=== PATIENT | female | born 1925 | race Caucasian/White ===

== ENCOUNTER 2016-11-29 16:25 | Emergency (ER) | payer OTHER ==
--- NOTE | 2016-11-29 18:39 | ED NURSING NOTES ---
Clinical Report - Nurses [facility] [address] [place] [address] 11/29/2016 16:30 Patient: JAILENE ESQUEDA TRIAGE Triage time 16:28. Acuity: LEVEL 4. Chief Complaint: (Per EMS: pt. 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 has not been keeping anything down. No report of emesis seen. Pt denies N/V or pain at this time. Pt. states, "I feel just fine and need to get home soon."). Alert. No acute distress. SEPSIS SCREEN: Sepsis Screen. Negative (no infection suspected/documented). JODI COMA SCORE: Jodi Coma Scale. (pt. has dementia). --16:48 Kendra Patricio R.N. 16:37 11/29/16. BP: 150/55. HR: 74. RR: 15. O2 saturation: 100%. Temp: 98.7 F. Pain level now 0/10. --16:48 Kendra Patricio R.N. Weight: 70.3 kg estimated. Height/Length: 62 inches Estimated. BMI: 28.4. --16:39 Kendra Patricio R.N. Medications Aspirin Oral (Tablet Chewable 81 mg) 1 tablet. --16:42 Kendra Patricio R.N. Atorvastatin Calcium Oral 20 mg, daily. --16:43 Kendra Patricio R.N. CertaVite Senior/Antioxidant Oral daily. --16:43 Kendra Patricio R.N. Docusate Sodium Oral (Capsule 250 mg) 1 capsule, daily. --16:43 Kendra Patricio R.N. Donepezil HCl Oral (Tablet 10 mg) 1 tablet, daily. --16:43 Kendra Patricio R.N. Multiple Vitamins Oral. --16:43 Kendra Patricio R.N. Sertraline HCl Oral (Tablet 50 mg) 1 tablet, daily. --16:44 Kendra Patricio R.N. Tolterodine Tartrate ER Oral daily. --16:44 Kendra Patricio R.N. Vitamin d3 1,000 units daily. --16:44 Kendra Patricio R.N. Acetaminophen Oral, as needed. --16:44 Kendra Patricio R.N. Antacids. --16:45 Kendra Patricio R.N. Bisac-Evac Rectal, as needed. --16:45 Kendra Patricio R.N. Bisacodyl EC Oral, as needed. --16:45 Kendra Patricio R.N. Enema prn. --16:46 Kendra Ptaricio R.N. Loperamide HCl Oral 2 mg x2 PRN. --16:46 Kendra Patricio R.N. LORazepam Oral 0.5 mg, as needed. --16:46 Kendra Patricio R.N. Allergies No Known Drug Allergy. --16:46 Kendra Patricio R.N. History Arrived by EMS. Historian: patient (pt has dementia). Primary physician (Froilan Mccarthy). This started today. Treatment POWDERMAN: None. PAST MEDICAL HX: Immunizations: up-to-date. SOCIAL HX: Never smoker. No alcohol use or drug use. She has not traveled outside the [place] ABUSE ASSESSMENT: No report of abuse. NUTRITIONAL RISK ASSESSMENT: The nutritional risk assessment revealed no deficiencies. LEARNING NEEDS ASSESSMENT: The learning needs assessment revealed no barriers. FUNCTIONAL ASSESSMENT: Functional assessment performed: requires assistance with the activities of daily living; cognitive impairment- senile dementia. --16:48 Kendra Patricio R.N. PROBLEMS: Chronic kidney disease stage 3. Acute nephritis NOS. General osteoarthrosis. Benign hypertension. Gastric ulcer. Dementia. Alzheimer's Disease. --16:48 Kendra Patricio R.N. ADDITIONAL SURGERIES: Unknown none noted in records: pt. has dementia. --16:48 Kendra Patricio R.N. Interventions ID band on patient. Transported via stretcher. --16:48 Kendra Patricio R.N. PHYSICAL ASSESSMENT GENERAL / NEURO / PSYCH: Alert. Appears in no acute distress. ( pt. is alert but confused: pt has dementia.). HEENT: No facial asymmetry noted. Mucous membranes are pink. RESPIRATORY: Respirations not labored. CVS: Capillary refill less than 2 seconds. Pulses within normal limits. GI / : Abdomen soft and nontender. SKIN: Skin intact. Skin is warm and dry. --16:49 Kendra Patricio R.N. ( assessment done at 1628). --16:50 Kendra Patricio R.N. NURSING PROGRESS NOTES Head of bed elevated. Two patient identifiers checked. Call light placed in reach. Side rails up x 2. Bed placed in lowest position. Brakes of bed on. Patient ready for evaluation- chart flagged. --16:49 Kendra Patricio R.N. 18:09 11/29/2016 Zofran ODT (Ondansetron) PO 4 mg given. Allergies verified and confirmed 5 rights. --18:09 Kendra Patricio R.N. DISPOSITION / DISCHARGE Condition at departure: stable. No learning barriers present. Discharge instructions provided and reviewed with the patient and family. Reviewed referral to family practice. Patient verbalized understanding. Written instructions provided in [place]. The patient was discharged home and accompanied by family. She left the Emergency Department in a wheelchair and via private vehicle. Family member driving. Medication list reviewed and validated. --18:17 Kendra Patricio R.N. 18:16 11/29/16. BP: 140/85. HR: 70. RR: 15. O2 saturation: 100%. Temp: 98.6 F. Pain level now 0/10. --18:17 Kendra Patricio R.N. Departure time: 18:17. --18:17 Kendra Patricio R.N. Locked/Released at 11/29/2016 19:14 by Mary Guthrie R.N.
--- NOTE | 2016-11-29 18:39 | ED CLINICAL REPORT ---
Clinical Report - Physicians/Mid Levels [facility] [address] [place] [address] 11/29/2016 16:30 Patient: JAILENE ESQUEDA Time Seen: 17:21; initial patient contact, initial documentation, patient care assumed. Arrived- By ambulance. Historian- patient and family. HISTORY OF PRESENT ILLNESS Chief Complaint: VOMITING. This started today and is now gone. No recent travel. She has had mild nausea. She has had vomiting (unknown). No diarrhea, black stools, bloody stools, abdominal pain or constipation. No flank pain, history of possible bad food exposure or known contact with a sick individual. Has not recently been camping or on antibiotics. The illness is described as mild. (sent [facility] for vomiting today, unknown how many episodes, pt denies any vomiting today, states sometimes she eats too much, will wake up in middle of night and vomit and go back to bed, family backs this story up, from [facility] staff). Similar symptoms previously: Occasionally. Recent medical care: Not recently seen/assessed. REVIEW OF SYSTEMS No fever, difficulty with urination, dark urine, chest pain or difficulty breathing. All systems otherwise negative, except as recorded above. PAST HISTORY See nurses notes. PROBLEMS: Chronic kidney disease stage 3. Acute nephritis NOS. General osteoarthrosis. Benign hypertension. Gastric ulcer. Dementia. Alzheimer's Disease. --16:48 Kendra Patricio R.N. ADDITIONAL SURGERIES: Unknown none noted in records: pt. has dementia. --16:48 Kendra Patricio RDalila. SOCIAL HISTORY Never smoker. No alcohol use or drug use. No recent travel. Is a local resident. Resides in a [facility]. FAMILY HISTORY Negative. ADDITIONAL NOTES The nursing notes have been reviewed with agreement regarding the chief complaint, HPI, ROS, PMH and patient medications and allergies. PHYSICAL EXAM Vital Signs: 11/29/2016 16:37 BP: 150/55. HR: 74. RR: 15. O2 saturation: 100%. Temp: 98.7 F. Have been reviewed as normal and appear to be correct. Appearance: Alert. Oriented X3. No acute distress. Eyes: Pupils equal, round and reactive to light. Eyes normal inspection. ENT: Nose normal. Pharynx normal. Neck: Normal inspection. Neck supple. CVS: Normal heart rate and rhythm. Heart sounds normal. Pulses normal. Respiratory: No respiratory distress. Breath sounds normal. Abdomen: Soft and nontender. Bowel sounds normal. No organomegaly. No mass. Back: Normal inspection. Skin: Skin warm and dry. Normal skin color. No rash. Normal skin turgor. Extremities: Extremities exhibit normal ROM. No lower extremity edema. Neuro: Disoriented. Altered mental status: disoriented to place and time. Eyes open spontaneously. Best verbal response: disoriented. Best motor response: obeys commands. No motor deficit. No sensory deficit. PROGRESS AND PROCEDURES Patient and family counseled in person regarding the patient's stable condition and diagnosis. 17:52. Differential Diagnosis: I considered gastritis, peptic ulcer disease, gastroesophageal reflux disease, achalasia, gastroparesis, gastroenteritis and viral syndrome as a possible cause of vomiting in this patient. This is a partial list of diagnoses considered. Above considerations are based on history and physical exam. Differential diagnosis was discussed with patient and patient's family. Disposition: Discharged home in good and improved condition (17:52). Condition: good and stable. CLINICAL IMPRESSION Intractable vomiting. No nausea, dehydration or volume depletion. Not bilious. INSTRUCTIONS Warnings: GENERAL WARNINGS: Return or contact your physician immediately if your condition worsens or changes unexpectedly, if not improving as expected, or if other problems arise. SPECIFICALLY, return if you develop pain in the abdomen or pelvis, fever, the inability to keep fluids down, blood in vomitus, blood in diarrhea, fainting or lightheadedness. Prescription Medications: Zofran 4 mg: Take 1 orally every six hours as needed for nausea/vomiting. Dispense ten (10). No refills. Substitution is permissible. Pepcid 20 mg tablets: Take 1 orally every 12 hours. Dispense thirty (30). No refills. Substitution is permissible. Follow-up: Follow up with your doctor in about three days even if well. Call for an appointment. Summary of care provided to patient and family. Understanding of the discharge instructions verbalized by patient. (Electronically signed by Jessica Claros A.R.NRosemariePRosemarie 11/29/2016 19:20)
--- NOTE | 2016-11-29 18:39 | ED NURSING NOTES ---
Clinical Report - Nurses [facility] [address] [place] [address] 11/29/2016 16:30 Patient: JAILENE ESQUEDA TRIAGE Triage time 16:28. Acuity: LEVEL 4. 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 stated pt. has not been keeping anything down. No report of emesis seen. Pt denies N/V or pain at this time. Pt. states, "I feel just fine and need to get home soon."). Alert. No acute distress. SEPSIS SCREEN: Sepsis Screen. Negative (no infection suspected/documented). JODI COMA SCORE: Jodi Coma Scale. (pt. has dementia). --16:48 Kendra Patricio R.N. 16:37 11/29/16. BP: 150/55. HR: 74. RR: 15. O2 saturation: 100%. Temp: 98.7 F. Pain level now 0/10. --16:48 Kendra Patricio R.N. Weight: 70.3 kg estimated. Height/Length: 62 inches Estimated. BMI: 28.4. --16:39 Kendra Patricio R.N. Medications Aspirin Oral (Tablet Chewable 81 mg) 1 tablet. --16:42 Kendra Patricio R.N. Atorvastatin Calcium Oral 20 mg, daily. --16:43 Kendra Patricio R.N. CertaVite Senior/Antioxidant Oral daily. --16:43 Kendra Patricio R.N. Docusate Sodium Oral (Capsule 250 mg) 1 capsule, daily. --16:43 Kendra Patricio R.N. Donepezil HCl Oral (Tablet 10 mg) 1 tablet, daily. --16:43 Kendra Patricio R.N. Multiple Vitamins Oral. --16:43 Kendra Patricio R.N. Sertraline HCl Oral (Tablet 50 mg) 1 tablet, daily. --16:44 Kendra Patricio R.N. Tolterodine Tartrate ER Oral daily. --16:44 Kendra Patricio R.N. Vitamin d3 1,000 units daily. --16:44 Kendra Patricio R.N. Acetaminophen Oral, as needed. --16:44 Kendra Patricio R.N. Antacids. --16:45 Kendra Patricio R.N. Bisac-Evac Rectal, as needed. --16:45 Kendra Patricio R.N. Bisacodyl EC Oral, as needed. --16:45 Kendra Patricio R.N. Enema prn. --16:46 Kendra Patricio R.N. Loperamide HCl Oral 2 mg x2 PRN. --16:46 Kendra Patricio R.N. LORazepam Oral 0.5 mg, as needed. --16:46 Kendra Patricio R.N. Allergies No Known Drug Allergy. --16:46 Kendra Patricio R.N. History Arrived by EMS. Historian: patient (pt has dementia). Primary physician (Froilan Mccarthy). This started today. Treatment GRIT REMOVAL OPERATOR: None. PAST MEDICAL HX: Immunizations: up-to-date. SOCIAL HX: Never smoker. No alcohol use or drug use. She has not traveled outside the [place] ABUSE ASSESSMENT: No report of abuse. NUTRITIONAL RISK ASSESSMENT: The nutritional risk assessment revealed no deficiencies. LEARNING NEEDS ASSESSMENT: The learning needs assessment revealed no barriers. FUNCTIONAL ASSESSMENT: Functional assessment performed: requires assistance with the activities of daily living; cognitive impairment- senile dementia. --16:48 Kendra Patricio R.N. PROBLEMS: Chronic kidney disease stage 3. Acute nephritis NOS. General osteoarthrosis. Benign hypertension. Gastric ulcer. Dementia. Alzheimer's Disease. --16:48 Kendra Patricio R.N. ADDITIONAL SURGERIES: Unknown none noted in records: pt. has dementia. --16:48 Kendra Patricio R.N. Interventions ID band on patient. Transported via stretcher. --16:48 Kendra Patricio R.N. PHYSICAL ASSESSMENT GENERAL / NEURO / PSYCH: Alert. Appears in no acute distress. ( pt. is alert but confused: pt has dementia.). HEENT: No facial asymmetry noted. Mucous membranes are pink. RESPIRATORY: Respirations not labored. CVS: Capillary refill less than 2 seconds. Pulses within normal limits. GI / : Abdomen soft and nontender. SKIN: Skin intact. Skin is warm and dry. --16:49 Kendra Patricio R.N. ( assessment done at 1628). --16:50 Kendra Patricio R.N. NURSING PROGRESS NOTES Head of bed elevated. Two patient identifiers checked. Call light placed in reach. Side rails up x 2. Bed placed in lowest position. Brakes of bed on. Patient ready for evaluation- chart flagged. --16:49 Kendra Patricio R.N. 18:09 11/29/2016 Zofran ODT (Ondansetron) PO 4 mg given. Allergies verified and confirmed 5 rights. --18:09 Kendra Patricio R.N. DISPOSITION / DISCHARGE Condition at departure: stable. No learning barriers present. Discharge instructions provided and reviewed with the patient and family. Reviewed referral to family practice. Patient verbalized understanding. Written instructions provided in [place]. The patient was discharged home and accompanied by family. She left the Emergency Department in a wheelchair and via private vehicle. Family member driving. Medication list reviewed and validated. --18:17 Kendra Patricio R.N. 18:16 11/29/16. BP: 140/85. HR: 70. RR: 15. O2 saturation: 100%. Temp: 98.6 F. Pain level now 0/10. --18:17 Kendra Patricio R.N. Departure time: 18:17. --18:17 Kendra Patricio R.N. Locked/Released at 11/29/2016 19:14 by Mary Guthrie R.N.
--- NOTE | 2016-11-29 18:39 | ED CLINICAL REPORT ---
Clinical Report - Physicians/Mid Levels [facility] [address] [place] [address] 11/29/2016 16:30 Patient: JAILENE ESQUEDA Time Seen: 17:21; initial patient contact, initial documentation, patient care assumed. Arrived- By ambulance. Historian- patient and family. HISTORY OF PRESENT ILLNESS Chief Complaint: VOMITING. This started today and is now gone. No recent travel. She has had mild nausea. She has had vomiting (unknown). No diarrhea, black stools, bloody stools, abdominal pain or constipation. No flank pain, history of possible bad food exposure or known contact with a sick individual. Has not recently been camping or on antibiotics. The illness is described as mild. (sent from assisted place for vomiting today, unknown how many episodes, pt denies any vomiting today, states sometimes she eats too much, will wake up in middle of night and vomit and go back to bed, family backs this story up, from assisted staff). Similar symptoms previously: Occasionally. Recent medical care: Not recently seen/assessed. REVIEW OF SYSTEMS No fever, difficulty with urination, dark urine, chest pain or difficulty breathing. All systems otherwise negative, except as recorded above. PAST HISTORY See nurses notes. PROBLEMS: Chronic kidney disease stage 3. Acute nephritis NOS. General osteoarthrosis. Benign hypertension. Gastric ulcer. Dementia. Alzheimer's Disease. --16:48 Kendra Patricio R.N. ADDITIONAL SURGERIES: Unknown none noted in records: pt. has dementia. --16:48 Kendra Patricio RDalila. SOCIAL HISTORY Never smoker. No alcohol use or drug use. No recent travel. Is a local resident. Resides in a assisted. FAMILY HISTORY Negative. ADDITIONAL NOTES The nursing notes have been reviewed with agreement regarding the chief complaint, HPI, ROS, PMH and patient medications and allergies. PHYSICAL EXAM Vital Signs: 11/29/2016 16:37 BP: 150/55. HR: 74. RR: 15. O2 saturation: 100%. Temp: 98.7 F. Have been reviewed as normal and appear to be correct. Appearance: Alert. Oriented X3. No acute distress. Eyes: Pupils equal, round and reactive to light. Eyes normal inspection. ENT: Nose normal. Pharynx normal. Neck: Normal inspection. Neck supple. CVS: Normal heart rate and rhythm. Heart sounds normal. Pulses normal. Respiratory: No respiratory distress. Breath sounds normal. Abdomen: Soft and nontender. Bowel sounds normal. No organomegaly. No mass. Back: Normal inspection. Skin: Skin warm and dry. Normal skin color. No rash. Normal skin turgor. Extremities: Extremities exhibit normal ROM. No lower extremity edema. Neuro: Disoriented. Altered mental status: disoriented to place and time. Eyes open spontaneously. Best verbal response: disoriented. Best motor response: obeys commands. No motor deficit. No sensory deficit. PROGRESS AND PROCEDURES Patient and family counseled in person regarding the patient's stable condition and diagnosis. 17:52. Differential Diagnosis: I considered gastritis, peptic ulcer disease, gastroesophageal reflux disease, achalasia, gastroparesis, gastroenteritis and viral syndrome as a possible cause of vomiting in this patient. This is a partial list of diagnoses considered. Above considerations are based on history and physical exam. Differential diagnosis was discussed with patient and patient's family. Disposition: Discharged home in good and improved condition (17:52). Condition: good and stable. CLINICAL IMPRESSION Intractable vomiting. No nausea, dehydration or volume depletion. Not bilious. INSTRUCTIONS Warnings: GENERAL WARNINGS: Return or contact your physician immediately if your condition worsens or changes unexpectedly, if not improving as expected, or if other problems arise. SPECIFICALLY, return if you develop pain in the abdomen or pelvis, fever, the inability to keep fluids down, blood in vomitus, blood in diarrhea, fainting or lightheadedness. Prescription Medications: Zofran 4 mg: Take 1 orally every six hours as needed for nausea/vomiting. Dispense ten (10). No refills. Substitution is permissible. Pepcid 20 mg tablets: Take 1 orally every 12 hours. Dispense thirty (30). No refills. Substitution is permissible. Follow-up: Follow up with your doctor in about three days even if well. Call for an appointment. Summary of care provided to patient and family. Understanding of the discharge instructions verbalized by patient. (Electronically signed by Jessica Claros A.R.NRosemariePRosemarie 11/29/2016 19:20)
--- NOTE | 2016-11-29 18:39 | ED ORDER SUMMARY ---
..... Patient: JAILENE ESQUEDA OrderSheet [facility] VisitID: [id number] [address] [place] [address] 89y, F Registration Date/Time: 11/29/2016 ORDER SHEET Weight: 70.3 kg (estimated) Allergies: No Known Drug Allergy GENERAL ORDERS: MEDICATION ORDERS: Zofran ODT PO 4 mg (NOW) (17:50 11/29/2016 Kaitlyn A.R.N.P.) (Ack 18:03 SReitz R.N.) (18:09 SReitz R.N.) IV FLUIDS: ORDER SHEET NOTES: [Electronically signed by Mary Guthrie R.N. (19:14 11/29/2016)] [Electronically signed by Jessica ClarosR.N.P. (19:20 11/29/2016)] [Electronically locked/signed by aMry Guthrie R.N. (19:14 11/29/2016)]
--- NOTE | 2016-11-29 18:39 | ED ORDER SUMMARY ---
..... Patient: JAILENE ESQUEDA OrderSheet [facility] VisitID: [id number] [address] [place] [address] 89y, F Registration Date/Time: 11/29/2016 ORDER SHEET Weight: 70.3 kg (estimated) Allergies: No Known Drug Allergy GENERAL ORDERS: MEDICATION ORDERS: Zofran ODT PO 4 mg (NOW) (17:50 11/29/2016 Kaitlyn A.R.N.P.) (Ack 18:03 SReitz R.N.) (18:09 SReitz R.N.) IV FLUIDS: ORDER SHEET NOTES: [Electronically signed by Mary Guthrie R.N. (19:14 11/29/2016)] [Electronically signed by Jessica ClarosR.N.P. (19:20 11/29/2016)] [Electronically locked/signed by Mary Guthrie R.N. (19:14 11/29/2016)]
--- NOTE | 2016-11-29 19:21 | ED DISCHARGE INSTRUCTIONS ---
Patient: JAILENE ESQUEDA General Instructions [facility] VisitID: [id number] [place] [address] 89y, F Registration Date/Time: 11/29/2016 Intractable vomiting. No nausea, dehydration or volume depletion. Not bilious. INSTRUCTIONS Warnings: GENERAL WARNINGS: Return or contact your physician immediately if your condition worsens or changes unexpectedly, if not improving as expected, or if other problems arise. SPECIFICALLY, return if you develop pain in the abdomen or pelvis, fever, the inability to keep fluids down, blood in vomitus, blood in diarrhea, fainting or lightheadedness. Prescription Medications: Zofran 4 mg: Take 1 orally every six hours as needed for nausea/vomiting. Dispense ten (10). No refills. Substitution is permissible. Pepcid 20 mg tablets: Take 1 orally every 12 hours. Dispense thirty (30). No refills. Substitution is permissible. Follow-up: Follow up with your doctor in about three days even if well. Call for an appointment. Summary of care provided to patient and family. Understanding of the discharge instructions verbalized by patient. ADDITIONAL INFORMATION Vomiting [6Yr-Adult] Vomiting is a common symptom that may be due to different causes. These include gastroenteritis ("stomach flu"), food poisoning and gastritis. There are other more serious causes of vomiting which may be hard to diagnose early in the illness. Therefore, it is important to watch for the warning signs listed below. The main danger from repeated vomiting is dehydration. This is due to excess loss of water and minerals from the body. When this occurs, body fluids must be replaced. Home Care: If symptoms are severe, rest at home for the next 24 hours. You may use acetaminophen (Tylenol) or ibuprofen (Motrin, Advil) to control fever, unless another medicine was prescribed. [NOTE : If you have chronic liver or kidney disease or ever had a stomach ulcer or GI bleeding, talk with your doctor before using these medicines.] (Aspirin should never be used in anyone under 18 years of age who is ill with a fever. It may cause severe liver damage.) Avoid tobacco and alcohol use, which may worsen your symptoms. If medicines for vomiting were prescribed, take as directed. Once vomiting stops, then follow these guidelines: During The First 12-24 Hours follow the diet below: FRUIT JUICES: Apple, grape juice, clear fruit drinks, and electrolyte replacement drinks. BEVERAGES: Soft drinks without caffeine; mineral water (plain or flavored), decaffeinated tea and coffee. SOUPS: Clear broth, consomm and bouillon DESSERTS: Plain gelatin, popsicles and fruit juice bars. As you feel better, you may add 6-8 ounces of yogurt per day. During The Next 24 Hours you may add the following to the above: Hot cereal, plain toast, bread, rolls, crackers Plain noodles, rice, mashed potatoes, chicken noodle or rice soup Unsweetened canned fruit (avoid pineapple), bananas Limit caffeine and chocolate. No spices or seasonings except salt. During The Next 24 Hours Gradually resume a normal diet, as you feel better and your symptoms lessen. Follow Up with your doctor as advised if you are not improving over the next 2-3 days. Get Prompt Medical Attention if any of the following occur: Constant right-sided lower abdominal pain or increasing general abdominal pain Continued vomiting (unable to keep liquids down) for 24 hours Frequent diarrhea (more than 5 times a day); blood (red or black color) or mucus in diarrhea Reduced urine output or extreme thirst Weakness, dizziness or fainting Unusually drowsy or confused Fever of 100.4F (38C) oral or higher, not better with fever medication Yellow color of the eyes or skin Ondansetron Oral disintegrating tablet What is this medicine? ONDANSETRON (on ARA se jet) is used to treat nausea and vomiting caused by chemotherapy. It is also used to prevent or treat nausea and vomiting after surgery. How should I use this medicine? These tablets are made to dissolve in the mouth. Do not try to push the tablet through the foil backing. With dry hands, peel away the foil backing and gently remove the tablet. Place the tablet in the mouth and allow it to dissolve, then swallow. While you may take these tablets with water, it is not necessary to do so. Talk to your snow ranger regarding the use of this medicine in children. Special care may be needed. What side effects may I notice from receiving this medicine? Side effects that you should report to your doctor or health childcare provider as soon as possible: allergic reactions like skin rash, itching or hives, swelling of the face, lips, or tongue breathing problems dizziness fast or irregular heartbeat feeling faint or lightheaded, falls fever and chills swelling of the hands and feet tightness in the chest Side effects that usually do not require medical attention (report to your doctor or health childcare provider if they continue or are bothersome): constipation or diarrhea headache What may interact with this medicine? Do not take this medicine with any of the following medications: -apomorphine -cisapride -dofetilide -dronedarone -pimozide -thioridazine -ziprasidone This medicine may also interact with the following medications: -carbamazepine -phenytoin -rifampicin -tramadol -other medicines that prolong the QT interval (cause an abnormal heart rhythm) What if I miss a dose? If you miss a dose, take it as soon as you can. If it is almost time for your next dose, take only that dose. Do not take double or extra doses. Where should I keep my medicine? Keep out of the reach of children. Store between 2 and 30 degrees C (36 and 86 degrees F). Throw away any unused medicine after the expiration date. What should I tell my health care provider before I take this medicine? They need to know if you have any of these conditions: heart disease history of irregular heartbeat liver disease low levels of magnesium or potassium in the blood an unusual or allergic reaction to ondansetron, granisetron, other medicines, foods, dyes, or preservatives or trying to get breast-feeding What should I watch for while using this medicine? Check with your doctor or health childcare provider as soon as you can if you have any sign of an allergic reaction. Famotidine Oral tablet What is this medicine? FAMOTIDINE (fa NAYAN ti jacek) is a type of antihistamine that blocks the release of stomach acid. It is used to treat stomach or intestinal ulcers. It can also relieve heartburn from acid reflux. How should I use this medicine? Take this medicine by mouth with a glass of water. Follow the directions on the prescription label. If you only take this medicine once a day, take it at bedtime. Take your doses at regular intervals. Do not take your medicine more often than directed. Talk to your snow ranger regarding the use of this medicine in children. Special care may be needed. What side effects may I notice from receiving this medicine? Side effects that you should report to your doctor or health childcare provider as soon as possible: agitation, nervousness confusion hallucinations skin rash, itching Side effects that usually do not require medical attention (report to your doctor or health childcare provider if they continue or are bothersome): constipation diarrhea dizziness headache What may interact with this medicine? delavirdine itraconazole ketoconazole What if I miss a dose? If you miss a dose, take it as soon as you can. If it is almost time for your next dose, take only that dose. Do not take double or extra doses. Where should I keep my medicine? Keep out of the reach of children. Store at room temperature between 15 and 30 degrees C (59 and 86 degrees F). Do not freeze. Throw away any unused medicine after the expiration date. What should I tell my health care provider before I take this medicine? They need to know if you have any of these conditions: kidney or liver disease trouble swallowing an unusual or allergic reaction to famotidine, other medicines, foods, dyes, or preservatives or trying to get breast-feeding What should I watch for while using this medicine? Tell your doctor or health childcare provider if your condition does not start to get better or if it gets worse. Finish the full course of tablets prescribed, even if you feel better. Do not take with aspirin, ibuprofen or other antiinflammatory medicines. These can make your condition worse. Do not smoke cigarettes or drink alcohol. These cause irritation in your stomach and can increase the time it will take for ulcers to heal. If you get black, tarry stools or vomit up what looks like coffee grounds, call your doctor or health childcare provider at once. You may have a bleeding ulcer. You have been given the following additional information: Vomiting (6Y-Adult) Ondansetron Oral disintegrating tablet Famotidine Oral tablet (Electronically signed by Jessica Claros A.R.N.P. 11/29/2016 19:20)
--- NOTE | 2016-11-29 19:21 | ED MAR SUMMARY ---
..... Medication Administration Record [facility] [address] [place] [address] Patient: JAILENE ESQUEDA Visit ID: [id number] 89y, F Weight: 70.3 kg Height/Length: 62 in BMI: 28.4 ALLERGIES: No Known Drug Allergy Given 18:09 11/29/2016 Kendra Patricio R.N. Medication Administered: ZOFRAN ODT [PO] (ONDANSETRON), Dose: 4 mg PO. Medication Ordered: Zofran ODT PO 4 mg (NOW).
--- NOTE | 2016-11-29 19:21 | ED MED RECONCILIATION SUMMARY ---
Patient: JAILENE ESQUEDA Medication Reconciliation Report [facility] VisitID: [id number] [address] [place] [address] 89y, F Registration Date/Time: 11/29/2016 Weight: 70.3 kg Height/Length: 62 in. BMI: 28.4 ALLERGIES: No Known Drug Allergy The patient's Home Medications are listed below: THE FOLLOWING MEDICATIONS NEED TO BE RECONCILED: Acetaminophen Oral Antacids Aspirin Oral (81 mg) 1 tablet Atorvastatin Calcium Oral 20 mg, daily Bisac-Evac Rectal Bisacodyl EC Oral CertaVite Senior/Antioxidant Oral daily Docusate Sodium Oral (250 mg) 1 capsule, daily Donepezil HCl Oral (10 mg) 1 tablet, daily Enema prn Loperamide HCl Oral 2 mg x2 PRN LORazepam Oral 0.5 mg Multiple Vitamins Oral Sertraline HCl Oral (50 mg) 1 tablet, daily Tolterodine Tartrate ER Oral daily Vitamin d3 1,000 units daily The source(s) of the original Home Medication information: Not obtained. The following Medications were given to the patient in the Emergency Department: Zofran ODT [PO] PO 4 mg, administered: 11/29/2016 6:09:00 PM The following Medications were prescribed to the patient: Zofran 4 mg: Take 1 orally every six hours as needed for nausea/vomiting. Dispense ten (10). No refills. Substitution is permissible. -- Jessica Claros A.R.N.P. Pepcid 20 mg tablets: Take 1 orally every 12 hours. Dispense thirty (30). No refills. Substitution is permissible. -- Jessica Claros A.R.N.P.
--- NOTE | 2016-11-29 19:21 | ED MED RECONCILIATION SUMMARY ---
Patient: JAILENE ESQUEDA Medication Reconciliation Report [facility] VisitID: [id number] [address] [place] [address] 89y, F Registration Date/Time: 11/29/2016 Weight: 70.3 kg Height/Length: 62 in. BMI: 28.4 ALLERGIES: No Known Drug Allergy The patient's Home Medications are listed below: THE FOLLOWING MEDICATIONS NEED TO BE RECONCILED: Acetaminophen Oral Antacids Aspirin Oral (81 mg) 1 tablet Atorvastatin Calcium Oral 20 mg, daily Bisac-Evac Rectal Bisacodyl EC Oral CertaVite Senior/Antioxidant Oral daily Docusate Sodium Oral (250 mg) 1 capsule, daily Donepezil HCl Oral (10 mg) 1 tablet, daily Enema prn Loperamide HCl Oral 2 mg x2 PRN LORazepam Oral 0.5 mg Multiple Vitamins Oral Sertraline HCl Oral (50 mg) 1 tablet, daily Tolterodine Tartrate ER Oral daily Vitamin d3 1,000 units daily The source(s) of the original Home Medication information: Not obtained. The following Medications were given to the patient in the Emergency Department: Zofran ODT [PO] PO 4 mg, administered: 11/29/2016 6:09:00 PM The following Medications were prescribed to the patient: Zofran 4 mg: Take 1 orally every six hours as needed for nausea/vomiting. Dispense ten (10). No refills. Substitution is permissible. -- Jessica Claros A.R.N.P. Pepcid 20 mg tablets: Take 1 orally every 12 hours. Dispense thirty (30). No refills. Substitution is permissible. -- Jessica Claros A.R.N.P.
--- NOTE | 2016-11-29 19:21 | ED MAR SUMMARY ---
..... Medication Administration Record [facility] [address] [place] [address] Patient: JAILENE ESQUEDA Visit ID: [id number] 89y, F Weight: 70.3 kg Height/Length: 62 in BMI: 28.4 ALLERGIES: No Known Drug Allergy Given 18:09 11/29/2016 Kendra Patricio R.N. Medication Administered: ZOFRAN ODT [PO] (ONDANSETRON), Dose: 4 mg PO. Medication Ordered: Zofran ODT PO 4 mg (NOW).
--- NOTE | 2016-11-29 19:21 | ED DISCHARGE INSTRUCTIONS ---
Patient: JAILENE ESQUEDA General Instructions [facility] VisitID: [id number] [place] [address] 89y, F Registration Date/Time: 11/29/2016 Intractable vomiting. No nausea, dehydration or volume depletion. Not bilious. INSTRUCTIONS Warnings: GENERAL WARNINGS: Return or contact your physician immediately if your condition worsens or changes unexpectedly, if not improving as expected, or if other problems arise. SPECIFICALLY, return if you develop pain in the abdomen or pelvis, fever, the inability to keep fluids down, blood in vomitus, blood in diarrhea, fainting or lightheadedness. Prescription Medications: Zofran 4 mg: Take 1 orally every six hours as needed for nausea/vomiting. Dispense ten (10). No refills. Substitution is permissible. Pepcid 20 mg tablets: Take 1 orally every 12 hours. Dispense thirty (30). No refills. Substitution is permissible. Follow-up: Follow up with your doctor in about three days even if well. Call for an appointment. Summary of care provided to patient and family. Understanding of the discharge instructions verbalized by patient. ADDITIONAL INFORMATION Vomiting [6Yr-Adult] Vomiting is a common symptom that may be due to different causes. These include gastroenteritis ("stomach flu"), food poisoning and gastritis. There are other more serious causes of vomiting which may be hard to diagnose early in the illness. Therefore, it is important to watch for the warning signs listed below. The main danger from repeated vomiting is dehydration. This is due to excess loss of water and minerals from the body. When this occurs, body fluids must be replaced. Home Care: If symptoms are severe, rest at home for the next 24 hours. You may use acetaminophen (Tylenol) or ibuprofen (Motrin, Advil) to control fever, unless another medicine was prescribed. [NOTE : If you have chronic liver or kidney disease or ever had a stomach ulcer or GI bleeding, talk with your doctor before using these medicines.] (Aspirin should never be used in anyone under 18 years of age who is ill with a fever. It may cause severe liver damage.) Avoid tobacco and alcohol use, which may worsen your symptoms. If medicines for vomiting were prescribed, take as directed. Once vomiting stops, then follow these guidelines: During The First 12-24 Hours follow the diet below: FRUIT JUICES: Apple, grape juice, clear fruit drinks, and electrolyte replacement drinks. BEVERAGES: Soft drinks without caffeine; mineral water (plain or flavored), decaffeinated tea and coffee. SOUPS: Clear broth, consomm and bouillon DESSERTS: Plain gelatin, popsicles and fruit juice bars. As you feel better, you may add 6-8 ounces of yogurt per day. During The Next 24 Hours you may add the following to the above: Hot cereal, plain toast, bread, rolls, crackers Plain noodles, rice, mashed potatoes, chicken noodle or rice soup Unsweetened canned fruit (avoid pineapple), bananas Limit caffeine and chocolate. No spices or seasonings except salt. During The Next 24 Hours Gradually resume a normal diet, as you feel better and your symptoms lessen. Follow Up with your doctor as advised if you are not improving over the next 2-3 days. Get Prompt Medical Attention if any of the following occur: Constant right-sided lower abdominal pain or increasing general abdominal pain Continued vomiting (unable to keep liquids down) for 24 hours Frequent diarrhea (more than 5 times a day); blood (red or black color) or mucus in diarrhea Reduced urine output or extreme thirst Weakness, dizziness or fainting Unusually drowsy or confused Fever of 100.4F (38C) oral or higher, not better with fever medication Yellow color of the eyes or skin Ondansetron Oral disintegrating tablet What is this medicine? ONDANSETRON (on ARA se jet) is used to treat nausea and vomiting caused by chemotherapy. It is also used to prevent or treat nausea and vomiting after surgery. How should I use this medicine? These tablets are made to dissolve in the mouth. Do not try to push the tablet through the foil backing. With dry hands, peel away the foil backing and gently remove the tablet. Place the tablet in the mouth and allow it to dissolve, then swallow. While you may take these tablets with water, it is not necessary to do so. Talk to your pmp regarding the use of this medicine in children. Special care may be needed. What side effects may I notice from receiving this medicine? Side effects that you should report to your doctor or health healthcare analyst as soon as possible: allergic reactions like skin rash, itching or hives, swelling of the face, lips, or tongue breathing problems dizziness fast or irregular heartbeat feeling faint or lightheaded, falls fever and chills swelling of the hands and feet tightness in the chest Side effects that usually do not require medical attention (report to your doctor or health healthcare analyst if they continue or are bothersome): constipation or diarrhea headache What may interact with this medicine? Do not take this medicine with any of the following medications: -apomorphine -cisapride -dofetilide -dronedarone -pimozide -thioridazine -ziprasidone This medicine may also interact with the following medications: -carbamazepine -phenytoin -rifampicin -tramadol -other medicines that prolong the QT interval (cause an abnormal heart rhythm) What if I miss a dose? If you miss a dose, take it as soon as you can. If it is almost time for your next dose, take only that dose. Do not take double or extra doses. Where should I keep my medicine? Keep out of the reach of children. Store between 2 and 30 degrees C (36 and 86 degrees F). Throw away any unused medicine after the expiration date. What should I tell my health care provider before I take this medicine? They need to know if you have any of these conditions: heart disease history of irregular heartbeat liver disease low levels of magnesium or potassium in the blood an unusual or allergic reaction to ondansetron, granisetron, other medicines, foods, dyes, or preservatives or trying to get breast-feeding What should I watch for while using this medicine? Check with your doctor or health healthcare analyst as soon as you can if you have any sign of an allergic reaction. Famotidine Oral tablet What is this medicine? FAMOTIDINE (fa NAYAN ti jacek) is a type of antihistamine that blocks the release of stomach acid. It is used to treat stomach or intestinal ulcers. It can also relieve heartburn from acid reflux. How should I use this medicine? Take this medicine by mouth with a glass of water. Follow the directions on the prescription label. If you only take this medicine once a day, take it at bedtime. Take your doses at regular intervals. Do not take your medicine more often than directed. Talk to your pmp regarding the use of this medicine in children. Special care may be needed. What side effects may I notice from receiving this medicine? Side effects that you should report to your doctor or health healthcare analyst as soon as possible: agitation, nervousness confusion hallucinations skin rash, itching Side effects that usually do not require medical attention (report to your doctor or health healthcare analyst if they continue or are bothersome): constipation diarrhea dizziness headache What may interact with this medicine? delavirdine itraconazole ketoconazole What if I miss a dose? If you miss a dose, take it as soon as you can. If it is almost time for your next dose, take only that dose. Do not take double or extra doses. Where should I keep my medicine? Keep out of the reach of children. Store at room temperature between 15 and 30 degrees C (59 and 86 degrees F). Do not freeze. Throw away any unused medicine after the expiration date. What should I tell my health care provider before I take this medicine? They need to know if you have any of these conditions: kidney or liver disease trouble swallowing an unusual or allergic reaction to famotidine, other medicines, foods, dyes, or preservatives or trying to get breast-feeding What should I watch for while using this medicine? Tell your doctor or health healthcare analyst if your condition does not start to get better or if it gets worse. Finish the full course of tablets prescribed, even if you feel better. Do not take with aspirin, ibuprofen or other antiinflammatory medicines. These can make your condition worse. Do not smoke cigarettes or drink alcohol. These cause irritation in your stomach and can increase the time it will take for ulcers to heal. If you get black, tarry stools or vomit up what looks like coffee grounds, call your doctor or health healthcare analyst at once. You may have a bleeding ulcer. You have been given the following additional information: Vomiting (6Y-Adult) Ondansetron Oral disintegrating tablet Famotidine Oral tablet (Electronically signed by Jessica Claros A.R.N.P. 11/29/2016 19:20)
== END 2016-11-29 18:17 | disposition home or self-care (01) ==
LOC: ED SRH 16:25
DX: R11.11 Vomiting without nausea (principal); N18.3 Chronic kidney disease, stage 3 (moderate); I10 Essential (primary) hypertension; G30.9 Alzheimer's disease, unspecified; F02.80 Dementia in other diseases classified elsewhere, unspecified severity, without behavioral disturbance, psychotic disturbance, mood disturbance, and anxiety; Z79.82 Long term (current) use of aspirin; Z79.899 Other long term (current) drug therapy

== ENCOUNTER 2017-03-05 14:01 | Emergency (ER) | payer OTHER ==
--- NOTE | 2017-03-05 15:53 | DIAGNOSTIC IMAGING REPORT ---
PROCEDURE: XR HIP 2VW W W/O AP PELVIS-RT INDICATION: PAIN TECHNIQUE: AP view of the pelvis and hips with lateral view of the right hip. COMPARISON: None. FINDINGS: RIGHT HIP: Decreased mineralization. No fracture. Normal bony alignment. Mild superior joint space loss and slight acetabular sclerosis indicating mild degenerative change at the hip joint. There is cartilage calcification seen laterally along the femoral head and a vague labral calcification. There is heavy calcific atherosclerosis of the right lower extremity arteries. PELVIS: Decreased mineralization. Pelvic rings are intact. No fractures. Normal alignment. Minor degenerative change at the left hip joint including chondrocalcinosis of the femoral head. Dense lobular calcifications seen in the left pelvis likely a degenerating uterine fibroid. Severe degenerative sclerosis involving the lower lumbar vertebral bodies. The visible bowel gas pattern is normal. IMPRESSION: 1. Intact right hip. 2. 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 3. Osteopenia. 4. 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
--- NOTE | 2017-03-05 17:18 | ED CLINICAL REPORT ---
Clinical Report - Physicians/Mid Levels [facility] [address] [place] [address] 03/05/2017 14:03 [id number] Time Seen: 14:22 Mar 05 2017. Arrived- By ambulance. Historian- patient and EMS personnel. HISTORY OF PRESENT ILLNESS Chief Complaint: right leg pain. 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 No weight loss. (New onset of diff ambulating over last 2 weeks, worse over last few days, no known injury / fall. NO change in behavior. Family, daughter has arrived, reports patient with dementia, primarily in a sitting position, does transfer from wheelchair to bed and chair, by standing. Patient does not ambulate. Denies any known fall. Patient is normal to her.). REVIEW OF SYSTEMS No fever, cough, abdominal pain, diarrhea or black stools. No chills or blackouts. No difficulty with ambulation. All systems otherwise negative, except as recorded above. PAST HISTORY Problems: Vomiting. Chronic kidney disease stage 3. Acute nephritis NOS. General osteoarthrosis. Benign hypertension. Gastric ulcer. Dementia. Alzheimer's Disease. Additional Surgeries: Unknown none noted in records: pt. has dementia. Medications: Ranitidine HCl Oral (Syrup 15 mg/mL) 10 mL, 2x a day. Aspirin Oral (Tablet Chewable 81 mg) 1 tablet. Atorvastatin Calcium Oral 20 mg, daily. Docusate Sodium Oral (Capsule 250 mg) 1 capsule, daily. Donepezil HCl Oral (Tablet 10 mg) 1 tablet, daily. Multiple Vitamins Oral. Sertraline HCl Oral (Tablet 50 mg) 1 tablet, daily. Vitamin d3 1,000 units daily. Allergies: No Known Drug Allergy. SOCIAL HISTORY Never smoker. No alcohol use or drug use. ADDITIONAL NOTES The nursing notes have been reviewed. PHYSICAL EXAM Vital Signs: 03/05/2017 14:04 BP: 166/77. HR: 70. RR: 16. O2 saturation: 99%. Temp: 97.4 F. Pain level now: 4/10. Appearance: Alert. No acute distress. No apparent distress. Does not appear to be anxious. Eyes: Eyes normal inspection. Neck: Normal inspection. CVS: Normal heart rate and rhythm. Heart sounds normal. Rhythm normal. No extra heart sounds. Respiratory: No respiratory distress. Breath sounds normal. No accessory muscle use or decreased air movement. Abdomen: No visible injury. No abdominal tenderness. The bowel sounds are not abnormal. Back: Mild vertebral tenderness in the right and left lumbar area. Skin: Skin warm. Normal skin color. Extremities: Extremities exhibit normal ROM. No clubbing present. No calf tenderness. No lower extremity edema. Neuro: Moderately altered mental status: disoriented to person, place and time. Patient slow to respond. No motor deficit. LABS, X-RAYS, AND EKG Rt Hip X-ray: (IMPRESSION: 1. Intact right hip. 2. 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 3. Osteopenia. 4. 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 Electronically Final signed by:Faith Villafana MD 03/05/2017 3:53:25 PM). Laboratory Tests: UA-Culture if indicated: (JENNIFER: 03/05/2017 15:10) ( MsgRcvd 03/05/2017 15:56) Final results Test Result Flag Units (Reference) URINE COLOR YELLOW URINE APPEARANCE CLEAR URINE GLUCOSE NEGATIVE (NEGATIVE) URINE BILIRUBIN NEGATIVE (NEGATIVE) URINE KETONE NEGATIVE (NEGATIVE) URINE SPECIFIC GRAVITY 1.025 (1.010-1.030) URINE PH 6.0 (5.0-8.0) URINE PROTEIN TRACE (NEGATIVE) URINE UROBILINOGEN 0.2 EU/dL (0.2-1.0) URINE NITRITE NEGATIVE (NEGATIVE) URINE BLOOD TRACE-INTACT (NEGATIVE) URINE LEUK ESTERASE NEGATIVE (NEGATIVE) URINE RBC 3-5 rbc/hpf (0-1) URINE WBC 0-1 wbc/hpf (0-1) URINE EPITHELIAL CELLS 0-1 EPI/hpf (0-5) URINE BACTERIA NONE SEEN (NONE SEEN) URINE COMMENT CULT NOT INDICATED 2+ MUCUS5-10 Hyaline Casts/l.p.f.URINE CULTURES ARE SET-UP BASED ON THE FOLLOWING CRITERIA:POSITIVE NITRITEPOSITIVE LEUKOCYTE ESTERASEGREATER THAN 10 WHITE BLOOD CELLSMODERATE (2+) OR GREATER BACTERIA CBC w Diff: (JENNIFER: 03/05/2017 15:16) ( MsgRcvd 03/05/2017 15:30) Final results Test Result Flag Units (Reference) WHITE BLOOD COUNT 7.5 K/uL (4.5-11.5) RED BLOOD COUNT 3.87 L M/uL (4.00-5.20) HEMOGLOBIN 11.6 L gm/dL (12.0-16.0) HEMATOCRIT 35.0 L % (36.0-46.0) MEAN CELL VOLUME 90 fL (80-100) MEAN CORPUSCULAR HGB 30 pg (26-34) MEAN CORPUSCULAR HGB CONC 33 g/dL (31-37) RED CELL DISTRIBUTION WIDTH 14.7 % (11.6-14.8) PLATELET COUNT 288 K/uL (150-400) NEUTROPHIL % 70.1 % (50-75) LYMPH % 15.8 L % (25-40) MONO % 10.4 % (3-14) EOSINOPHIL % 3.2 % (0-4) BASOPHIL % 0.5 % (0-2) [id number]: (JENNIFER: 03/05/2017 15:16) ( MsgRcvd 03/05/2017 15:41) Final results Test Result Flag Units (Reference) D-DIMER QUANTITATIVE 1.77 H ug/mLFEU (0.27-0.52) The primary value of this quantitative assay relates toits negative predictive value (i.e. exclusion) of pulmonaryembolism/deep vein thrombosis/DIC.Elevated levels of d-dimer may also occur with:, age, cancer, inflammation, liver disease,post-op, infection, hematoma, coronary disease, peripheralarteriopathy, bleeding disorders and thrombolytic treatment.Results should be correlated with other clinical andradiological data.Testing Methodology: Latex Immunoassay BMP: (JENNIFER: 03/05/2017 15:16) ( MsgRcvd 03/05/2017 15:44) Final results Test Result Flag Units (Reference) GLUCOSE 134 H mg/dL (70-110) BUN 18 mg/dL (7-18) CREATININE 1.4 H mg/dL (0.6-1.3) Estimated GFR 37.63 mL/min Estimated GFR- 45.61 mL/min Note: Persistent reduction over 3 months in eGFR<60 mL/min/1.73 m2 defines CKD. Patients with eGFR values>=60 mL/min/1.73 m2 may also have CKD if evidence ofpersistent proteinuria. Additional information may be foundat www.kidney.org. SODIUM 142 mmol/L (136-145) POTASSIUM 3.9 mmol/L (3.5-5.1) CHLORIDE 106 mmol/L (98-107) CARBON DIOXIDE 29 mmol/L (21-32) CALCIUM 9.2 mg/dL (8.5-10.1) . Note - Tests: (US neg for dvt IMPRESSION: 1. No deep venous thrombosis in the right lower extremity. Electronically Final signed by:Faith Villafana MD 03/05/2017 6:02:20 PM). PROGRESS AND PROCEDURES Course of Care: Patient in her normal state of being per family. No distress. No signs of trauma. No signs of head injury. Patient very stable. Patient is able to stand. Discussed options of increase care with family, they will follow up with primary care provider. 03/05/2017 17:42 BP: 136/74. HR: 74. RR: 16. O2 saturation: 100%. Pain level now: 0/10. Patient is stable. Symptoms better. Patient/family counseled. Differential Diagnosis: I considered ischemic stroke, arteriovenous malformation, cord compression, subdural abscess and other etiology as a possible cause of weakness in this patient. This is a partial list of diagnoses considered. Disposition: Discharged. CLINICAL IMPRESSION Chronic polyarthritis. Chronic nontraumatic back pain. INSTRUCTIONS Warnings: Further evaluation is necessary. OTC Medications: Tylenol ER 650 mg (available over the counter): take 1 orally every 6 hours for 5 days, as needed for pain. Dispense fifteen (15). No refill. Substitution is permissible. (Electronically signed by Yoli Stewart P.A.-C 03/05/2017 18:18)
--- NOTE | 2017-03-05 17:18 | ED ORDER SUMMARY ---
..... Patient: JAILENE ESQUEDA Order[facility] VisitID: [id number] [address] [place] [address] 89y, F Registration Date/Time: 03/05/2017 ORDER SHEET Weight: 81.6 kg (estimated) Allergies: No Known Drug Allergy GENERAL ORDERS: Hip 2V Right w AP Pelvis Urgent (14:21 03/05/2017 EKoroleva P.A.-C) (Ack 14:25 TBergley) (14:40 Hayder) CBC w Diff Urgent (14:42 03/05/2017 EKoroleva P.A.-C) (Ack 14:45 TBergley) (15:59 KKnebel R.N.) BMP Urgent (14:42 03/05/2017 EKoroleva P.A.-C) (Ack 14:45 TBergley) (15:59 KKnebel R.N.) UA-Culture if indicated Urgent (14:42 03/05/2017 EKoroleva P.A.-C) (Ack 14:45 TBergley) (15:59 KKnebel R.N.) D-Dimer Urgent (14:42 03/05/2017 EKoroleva P.A.-C) (Ack 14:45 TBergley) (15:59 KKnebel R.N.) US Venous Right Urgent (15:46 03/05/2017 EKoroleva P.A.-C) (Ack 16:03 TBergley) (17:31 KKnebel R.N.) MEDICATION ORDERS: IV FLUIDS: ORDER SHEET NOTES: [Electronically signed by Ene Domniguez R.N. (18:01 03/05/2017)] [Electronically signed by Yoli StewartA.-C (18:18 03/05/2017)] [Electronically locked/signed by Ene Dominguez R.N. (18:01 03/05/2017)]
--- NOTE | 2017-03-05 17:18 | ED NURSING NOTES ---
Clinical Report - Nurses [facility] [address] [place] [address] 03/05/2017 14:03 [id number] Triage time 14:Mar 05 2017. Acuity: LEVEL 3. Chief Complaint: RIGHT LOWER EXTREMITY PAIN. JODI COMA SCORE: Jodi Coma Scale: 15- eyes open spontaneously (4); best verbal response- oriented x 4 (5); best motor response- obeys commands (6). --14:13 Ene Dominguez R.N. 14:04 03/05/17. BP: 166/77. HR: 70. RR: 16. O2 saturation: 99%. Temp: 97.4 F. Pain level now: 03/06. --14:13 Ene Dominguez R.N. Weight: 81.6 kg estimated. Height/Length: 65 inches Estimated. BMI: 30. --14:10 Ene Dominguez R.N. Medications Aspirin Oral (Tablet Chewable 81 mg) 1 tablet. Atorvastatin Calcium Oral 20 mg, daily. Docusate Sodium Oral (Capsule 250 mg) 1 capsule, daily. Donepezil HCl Oral (Tablet 10 mg) 1 tablet, daily. Multiple Vitamins Oral. Sertraline HCl Oral (Tablet 50 mg) 1 tablet, daily. Vitamin d3 1,000 units daily. --14:11 Ene Dominguez R.N. Ranitidine HCl Oral (Syrup 15 mg/mL) 10 mL, 2x a day. --14:12 Ene Dominguez R.N. Medication/allergy information source: the patient's longterm record. --14:13 Ene Dominguez R.N. Allergies No Known Drug Allergy. --14:12 Ene Dominguez R.N. History Arrived by EMS. Historian: patient. No injury occurred. This occurred (about 2 weeks). It is described as radiating to the right lower extremity and thigh. 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 PAST MEDICAL HX: Tetanus status: unknown. Immunizations: status is unknown. Denies current . SOCIAL HX: Never smoker. No alcohol use or drug use. No infectious disease exposure. SELF HARM ASSESSMENT: A self harm assessment was performed. The patient answered "no" to the question "Do you have thoughts of harming or killing yourself?". ABUSE ASSESSMENT: Abuse assessment: The patient was asked "Do you feel safe in your home?". FALL RISK ASSESSMENT: Fall risk assessment completed. Risk factors identified include patient age greater than 65 years, history of fall and impairment of cognition. Fall interventions initiated. Side rails up x2. Brakes on Bed in low position. Patient visible from nurses' station. Instructed not to get up without assistance. --14:13 Ene Dominguez R.N. PROBLEMS: Vomiting. Chronic kidney disease stage 3. Acute nephritis NOS. General osteoarthrosis. Benign hypertension. Gastric ulcer. Dementia. Alzheimer's Disease. --14:12 Ene Dominguez R.N. Interventions ID band on patient. To room. --14:13 Ene Dominguez R.N. PHYSICAL ASSESSMENT To room via stretcher. GENERAL / NEURO / PSYCH: Disoriented. Alert. Appears in no acute distress. EXTREMITIES: Extremity pulses are within normal limits. Neuro-vascular status intact to the extremity. No lower extremity edema. Right leg: tenderness. Limited weight bearing secondary to pain. SKIN: Skin is warm and dry. --14:14 Ene Dominguez R.N. NURSING PROGRESS NOTES Pulse oximeter and NIBP monitor placed on patient; monitor alarms on. Patient gowned. Two patient identifiers checked. Call light placed in reach. Side rails up x 2. Bed placed in lowest position. Brakes of bed on. Patient ready for evaluation- chart flagged. --14:14 Ene Dominguez R.N. Patient ready for evaluation- chart flagged. --14:14 Ene Dominguez R.N. Patient transported to radiology by stretcher with [employer]. (14:26 Mar 05 2017). --14:36 Ene Dominguez R.N. 14:26 03/05/17. ( family at bedside). --14:37 Ene Dominguez R.N. Patient returned from radiology by stretcher with tech. (14:40 Mar 05 2017). --14:40 Ene Dominguez R.N. The patient reports no complaints and she is calm and resting quietly. --14:50 Ene Dominguez R.N. 14:49 03/05/17. BP: 123/57. HR: 65. RR: 16. O2 saturation: 100%. Pain level now: 0/10. --14:50 Ene Dominguez R.N. DISPOSITION / DISCHARGE Departure time: 17:43 Mar 05 2017. Condition at departure: improved. Fall risk assessment completed. Risk factors identified include severe pain and patient age greater than 65 years, history of fall and impairment of mobility and cognition. No learning barriers present. Discharge instructions provided and reviewed with the patient and family. Reviewed medication(s) side effects, precautions, dosing and course information. Reviewed referral to a primary care physician. Patient and family verbalized understanding. Written instructions provided in Rwandan. The patient was discharged home and accompanied by family. She left the Emergency Department in a wheelchair and via private vehicle. Family member driving. --17:44 Ene Dominguez R.N. 17:42 03/05/17. BP: 136/74. HR: 74. RR: 16. O2 saturation: 100%. Pain level now: 0/10. --17:44 Ene Dominguez R.N. Locked/Released at 03/05/2017 18:01 by Ene Dominguez R.N.
--- NOTE | 2017-03-05 17:18 | ED NURSING NOTES ---
Clinical Report - Nurses [place] [address] [place] [address] 03/05/2017 14:03 [id number] Triage time 14:Mar 05 2017. Acuity: LEVEL 3. Chief Complaint: RIGHT LOWER EXTREMITY PAIN. JODI COMA SCORE: Jodi Coma Scale: 15- eyes open spontaneously (4); best verbal response- oriented x 4 (5); best motor response- obeys commands (6). --14:13 Ene Dominguez R.N. 14:04 03/05/17. BP: 166/77. HR: 70. RR: 16. O2 saturation: 99%. Temp: 97.4 F. Pain level now: 03/06. --14:13 Ene Dominguez R.N. Weight: 81.6 kg estimated. Height/Length: 65 inches Estimated. BMI: 30. --14:10 Ene Dominguez R.N. Medications Aspirin Oral (Tablet Chewable 81 mg) 1 tablet. Atorvastatin Calcium Oral 20 mg, daily. Docusate Sodium Oral (Capsule 250 mg) 1 capsule, daily. Donepezil HCl Oral (Tablet 10 mg) 1 tablet, daily. Multiple Vitamins Oral. Sertraline HCl Oral (Tablet 50 mg) 1 tablet, daily. Vitamin d3 1,000 units daily. --14:11 Ene Dominguez R.N. Ranitidine HCl Oral (Syrup 15 mg/mL) 10 mL, 2x a day. --14:12 Ene Dominguez R.N. Medication/allergy information source: the patient's [facility] record. --14:13 Ene Dominguez R.N. Allergies No Known Drug Allergy. --14:12 Ene Dominguez R.N. History Arrived by EMS. Historian: patient. No injury occurred. This occurred (about 2 weeks). It is described as radiating to the right lower extremity and thigh. Treatment CLIENT APPLICATION SUPPORT SPECIALIST: None. PAST MEDICAL HX: Tetanus status: unknown. Immunizations: status is unknown. Denies current . SOCIAL HX: Never smoker. No alcohol use or drug use. No infectious disease exposure. SELF HARM ASSESSMENT: A self harm assessment was performed. The patient answered "no" to the question "Do you have thoughts of harming or killing yourself?". ABUSE ASSESSMENT: Abuse assessment: The patient was asked "Do you feel safe in your home?". FALL RISK ASSESSMENT: Fall risk assessment completed. Risk factors identified include patient age greater than 65 years, history of fall and impairment of cognition. Fall interventions initiated. Side rails up x2. Brakes on Bed in low position. Patient visible from nurses' station. Instructed not to get up without assistance. --14:13 Ene Dominguez R.N. PROBLEMS: Vomiting. Chronic kidney disease stage 3. Acute nephritis NOS. General osteoarthrosis. Benign hypertension. Gastric ulcer. Dementia. Alzheimer's Disease. --14:12 Ene Dominguez R.N. Interventions ID band on patient. To room. --14:13 Ene Dominguez R.N. PHYSICAL ASSESSMENT To room via stretcher. GENERAL / NEURO / PSYCH: Disoriented. Alert. Appears in no acute distress. EXTREMITIES: Extremity pulses are within normal limits. Neuro-vascular status intact to the extremity. No lower extremity edema. Right leg: tenderness. Limited weight bearing secondary to pain. SKIN: Skin is warm and dry. --14:14 Ene Dominguez R.N. NURSING PROGRESS NOTES Pulse oximeter and NIBP monitor placed on patient; monitor alarms on. Patient gowned. Two patient identifiers checked. Call light placed in reach. Side rails up x 2. Bed placed in lowest position. Brakes of bed on. Patient ready for evaluation- chart flagged. --14:14 Ene Dominguez R.N. Patient ready for evaluation- chart flagged. --14:14 Ene Dominguez R.N. Patient transported to radiology by stretcher with [employer]. (14:26 Mar 05 2017). --14:36 Ene Dominguez R.N. 14:26 03/05/17. ( family at bedside). --14:37 Ene Dominguez R.N. Patient returned from radiology by stretcher with tech. (14:40 Mar 05 2017). --14:40 Ene Dominguez R.N. The patient reports no complaints and she is calm and resting quietly. --14:50 Ene Dominguez R.N. 14:49 03/05/17. BP: 123/57. HR: 65. RR: 16. O2 saturation: 100%. Pain level now: 0/10. --14:50 Ene Dominguez R.N. DISPOSITION / DISCHARGE Departure time: 17:43 Mar 05 2017. Condition at departure: improved. Fall risk assessment completed. Risk factors identified include severe pain and patient age greater than 65 years, history of fall and impairment of mobility and cognition. No learning barriers present. Discharge instructions provided and reviewed with the patient and family. Reviewed medication(s) side effects, precautions, dosing and course information. Reviewed referral to a primary care physician. Patient and family verbalized understanding. Written instructions provided in Martiniquais. The patient was discharged home and accompanied by family. She left the Emergency Department in a wheelchair and via private vehicle. Family member driving. --17:44 Ene Dominguez R.N. 17:42 03/05/17. BP: 136/74. HR: 74. RR: 16. O2 saturation: 100%. Pain level now: 0/10. --17:44 Ene Dominguez R.N. Locked/Released at 03/05/2017 18:01 by Ene Dominguez R.N.
--- NOTE | 2017-03-05 17:18 | ED ORDER SUMMARY ---
..... Patient: JAILENE ESQUEDA OrderSheet [facility] VisitID: [id number] [address] [place] [address] 89y, F Registration Date/Time: 03/05/2017 ORDER SHEET Weight: 81.6 kg (estimated) Allergies: No Known Drug Allergy GENERAL ORDERS: Hip 2V Right w AP Pelvis Urgent (14:21 03/05/2017 EKoroleva P.A.-C) (Ack 14:25 TBergley) (14:40 Hayder) CBC w Diff Urgent (14:42 03/05/2017 EKoroleva P.A.-C) (Ack 14:45 TBergley) (15:59 KKnebel R.N.) BMP Urgent (14:42 03/05/2017 EKoroleva P.A.-C) (Ack 14:45 TBergley) (15:59 KKnebel R.N.) UA-Culture if indicated Urgent (14:42 03/05/2017 EKoroleva P.A.-C) (Ack 14:45 TBergley) (15:59 KKnebel R.N.) D-Dimer Urgent (14:42 03/05/2017 EKoroleva P.A.-C) (Ack 14:45 TBergley) (15:59 KKnebel R.N.) US Venous Right Urgent (15:46 03/05/2017 EKoroleva P.A.-C) (Ack 16:03 TBergley) (17:31 KKnebel R.N.) MEDICATION ORDERS: IV FLUIDS: ORDER SHEET NOTES: [Electronically signed by Ene Dominguez R.N. (18:01 03/05/2017)] [Electronically signed by Yoli StewartA.-C (18:18 03/05/2017)] [Electronically locked/signed by Ene Dominguez R.N. (18:01 03/05/2017)]
--- NOTE | 2017-03-05 18:02 | DIAGNOSTIC IMAGING REPORT ---
PROCEDURE: US VENOUS - RIGHT EXT INDICATION: SWELLING TECHNIQUE: Duplex sonography of the deep venous system in the right lower extremity was performed. Compression and augmentation techniques were used. COMPARISON: None. FINDINGS: Each interrogated segment of deep vein from the common femoral vein into the calf veins demonstrates normal compressibility, augmentation and/or color Doppler flow without filling defect. No evidence of significant soft-tissue edema, soft-tissue mass or cyst. IMPRESSION: 1. No deep venous thrombosis in the right lower extremity.
--- NOTE | 2017-03-05 18:18 | ED MAR SUMMARY ---
..... Medication Administration Record [facility] [address] [place], [place] [id number] Patient: JAILENE ESQUEDA Visit ID: [id number] 89y, F Weight: 81.6 kg Height/Length: 65 in BMI: 30 ALLERGIES: No Known Drug Allergy
--- NOTE | 2017-03-05 18:18 | ED DISCHARGE INSTRUCTIONS ---
Patient: JAILENE ESQUEDA General Instructions [facility] VisitID: [id number] [place] [address] 89y, F Registration Date/Time: 03/05/2017 Chronic polyarthritis. Chronic nontraumatic back pain. INSTRUCTIONS Warnings: Further evaluation is necessary. OTC Medications: Tylenol ER 650 mg (available over the counter): take 1 orally every 6 hours for 5 days, as needed for pain. Dispense fifteen (15). No refill. Substitution is permissible. ADDITIONAL INFORMATION Osteoarthritis Osteoarthritis (also called Degenerative Joint Disease) is the most common form of arthritis in adults over 50. It is not the same as Rheumatoid Arthritis. The exact cause is not known but may be related to excess wear and tear on the joint over a long period of time. Prior injury to that joint, or repeated stress on a joint can also cause this type of arthritis. Osteoarthritis most often affects the hands, knees, spine and hips (in that order). The most common symptoms are joint stiffness, pain and swelling. Home Care: When a joint is more sore than usual, rest that joint for a day or two. Heat is very helpful. This can be provided by taking hot baths, applying a heating pad for up to 30 minutes at a time. Because symptoms are usually worse in the morning, many patients like to take a hot bath just after awakening to relax the muscle and soothe the joints. Exercise is the most important part of home treatment for osteoarthritis. This prevents the muscles and ligaments around the joint from becoming weak and helps maintain the full range of joint motion. This limits further damage to the joint. If you are overweight, this puts a lot of extra strain on weight-bearing joints of the lower back, hips, knees, feet and ankles. Losing weight will improve your arthritis symptoms in these joints. Talk to your doctor about a safe and effective weight loss program for yourself. Anti-inflammatory medicine such as ibuprofen (Advil, Motrin) or naproxen (Aleve) is often used to treat this condition. If this alone is not helping, your doctor may prescribe a stronger medicine. If narcotic pain medicines have been prescribed, they should be used in addition to anti-inflammatory drugs and only for severe pain. Follow Up with your doctor as advised by our staff. Get Prompt Medical Attention if any of the following occur: Redness or swelling of a painful joint Fever of 100.4F (38C) or higher, or as directed by your healthcare provider Worsening joint pain Arthralgia Arthralgia is the term for pain in or around the joint. It is not a disease but a symptom. This may involve one or more joints. Sometimes arthralgias move from joint to joint. There are many causes for joint pain. These include: Injury Osteoarthritis (from wearing out of the joint surface) Rheumatoid arthritis (an autoimmune disease) Gout (inflammation of the joint due to crystals in the joint fluid) Infection inside the joint Bursitis (inflammation of the fluid-filled sacs around the joint) Lupus and other collagen-vascular disease Home Care: Rest the involved joint(s) until your symptoms improve. You may use acetaminophen (Tylenol) or ibuprofen (Motrin, Advil) to control pain, unless another pain medicine was prescribed. [NOTE: If you have chronic liver or kidney disease or ever had a stomach ulcer or GI bleeding, talk with your doctor before using these medicines.] Follow Up with your doctor or as advised by our staff. [NOTE: If you had an X-ray it will be reviewed by a specialist. You will be notified of any new findings that may affect your care.] Return Promptly or contact your doctor if any of the following occurs: Pain increases Pain moves to other joints New rash appears Fever of 100.4F (38C) or higher, or as directed by your healthcare provider Sciatica Sciatica ("Lumbar Radiculopathy") causes a pain that spreads from the lower back down into the buttock, hip and leg. Sometimes leg pain can occur without any back pain. Sciatica is due to irritation or pressure on a spinal nerve as it comes out of the spinal canal. This is most often due to a bulge or rupture of a nearby spinal disk (the cartilage cushion between each spinal bone), which presses on a nearby nerve. Other causes include spinal stenosis (narrowing of the spinal canal) and spasm of the pyriform muscle (a muscle in the buttocks that the sciatic nerve passes through). Sciatica may begin after a sudden twisting/bending force (such as in a car accident), or sometimes after a simple awkward movement. In either case, muscle spasm is commonly present and contributes to the pain. The diagnosis of sciatica is made from the symptoms and physical exam. Unless you had a physical injury (such as a car accident or fall), X-rays are usually not ordered for the initial evaluation of sciatica because the nerves and disks cannot be seen on an x-ray. If signs of a compressed nerve are present (for example, loss of tendon reflex or strength in the leg), an MRI (magnetic resonance imaging) scan will need to be scheduled as an outpatient. Most sciatica (80-90%) gets better with medicine, exercise, physical therapy. If symptoms continue after at least three months of medical treatment, surgery may be considered. Home Care: You may need to stay in bed the first few days. But, as soon as possible, begin sitting or walking to avoid problems with prolonged bed rest. When in bed, try to find a position of comfort. A firm mattress is best. Try lying flat on your back with pillows under your knees. You can also try lying on your side with your knees bent up towards your chest and a pillow between your knees. Avoid prolonged sitting. This puts more stress on the lower back than standing or walking. Some persons find relief with heat (hot shower, hot bath or heating pad) and massage, while others prefer cold packs (crushed or cubed ice in a plastic bag, wrapped in a towel). Try both and use the method that feels best for 20 minutes several times a day. You may use acetaminophen (Tylenol) or ibuprofen (Motrin, Advil) to control pain, unless another pain medicine was prescribed. [ NOTE: If you have chronic liver or kidney disease or ever had a stomach ulcer or GI bleeding, talk with your doctor before using these medicines.] Be aware of safe lifting methods and do not lift anything over 15 pounds until all the pain is gone. Follow Up with your doctor or this facility if your symptoms do not start to improve after one week. Physical therapy or further testing may be needed. [NOTE: If X-rays were taken, they will be reviewed by a radiologist. You will be notified of any new findings that may affect your care.] Get Prompt Medical Attention if any of the following occur: Pain becomes worse, not controlled by the prescribed medicine Weakness or numbness in one or both legs Numbness in the groin, genital area Loss of bowel or bladder control Degenerative Disk Disease Spinal disks are gel-filled cushions between the bones of the spine (vertebrae). The disks act like shock absorbers. Over time, the disks may break down. This disorder is called degenerative disk disease (DDD). DDD can affect the neck or back. It is one of the most common causes of low back pain. It is the leading cause of disability in people under age 45 in the [place]. The pain usually remains localized to the lower back or neck. Muscle spasm is often present and adds to the pain. Disk degeneration is a natural part of aging, although it does not cause pain in most persons. It may also occur as a result of repeated minor injuries due to daily activities, sports, or accidents. It may lead to osteoarthritis of the spine. Back pain related to disk disease may come and go or become chronic and last for months or years. If the disk bulges or ruptures (also called slipped disk or herniated disk), it can put pressure on a nearby spinal nerve and cause neck or back pain that spreads down one arm or leg. X-rays or MRI (magnetic resonance imaging) scan may aid in the diagnosis. For acute pain, treatment consists of anti-inflammatory drugs, muscle relaxants, rest, ice, or heat. Narcotic pain medicines may be needed for short-term treatment of sudden worsening of pain. Due to their addictive potential, narcotics are not advised for long-term pain management. Other types of medicines are preferred. Surgery is usually not used to treat this condition unless there is a complication (such as nerve root compression). Home Care: FOR NECK PAIN: Use a comfortable pillow that supports the head and keeps the spine in a neutral position. The head should not be tilted forward or backward. FOR BACK PAIN: Avoid prolonged sitting. This puts more stress on the lower back than standing or walking. Establishing a regular exercise program to strengthen the supporting muscles of the spine will make it easier to live with DDD. During the first2 days after a flare-up of your pain, apply anice pack to the painful area for 20 minutes every 2-4 hours. This will reduce swelling and pain.Heat (hot shower, hot bath, or heating pad) works well for muscle spasm. You can start with ice, then switch to heat after2 days. Some patients feel best alternating ice and heat treatments. Use the method that feelsbest to you. You may use acetaminophen (Tylenol) or ibuprofen (Motrin, Advil) to control pain, unless another pain medicine was prescribed. [NOTE: If you have chronic liver or kidney disease or ever had a stomach ulcer or GI bleeding, talk with your doctor before using these medicines.] Follow Up with your physician, or as directed by our staff. [NOTE: If x-rays, a CT scan or an MRI scan were taken, they will be reviewed by a radiologist. You will be notified of any new findings that may affect your care.] Return Promptly or contact your doctor if any of the following occur: Increasing back pain New weakness, numbness, or pain in one or both arms or legs Foot drop (foot drags when you walk) Loss of bowel or bladder control Numbness or tingling in the buttock or groin area Unexplained fever over 100.4F (38.0C) You have been given the following additional information: Osteoarthritis Arthralgia Back Pain W/ Sciatica Degenerative Disk Disease (Electronically signed by Yoli Stewart P.A.-C 03/05/2017 18:18)
--- NOTE | 2017-03-05 18:18 | ED MAR SUMMARY ---
..... Medication Administration Record [facility] [address] [place], [place] [id number] Patient: JAILENE ESQUEDA Visit ID: [id number] 89y, F Weight: 81.6 kg Height/Length: 65 in BMI: 30 ALLERGIES: No Known Drug Allergy
--- NOTE | 2017-03-05 18:18 | ED MED RECONCILIATION SUMMARY ---
Patient: JAILENE ESQUEDA Medication Reconciliation Report [facility] VisitID: [id number] [place] [address] 89y, F Registration Date/Time: 03/05/2017 Weight: 81.6 kg Height/Length: 65 in. BMI: 30.0 ALLERGIES: No Known Drug Allergy The patient's Home Medications are listed below: THE FOLLOWING MEDICATIONS NEED TO BE RECONCILED: Aspirin Oral (81 mg) 1 tablet Atorvastatin Calcium Oral 20 mg, daily Docusate Sodium Oral (250 mg) 1 capsule, daily Donepezil HCl Oral (10 mg) 1 tablet, daily Multiple Vitamins Oral Ranitidine HCl Oral (15 mg/mL) 10 mL, 2x a day Sertraline HCl Oral (50 mg) 1 tablet, daily Vitamin d3 1,000 units daily The source(s) of the original Home Medication information: patient's residential record The following Medications were given to the patient in the Emergency Department: None. The following Medications were prescribed to the patient: Tylenol ER 650 mg (available over the counter): take 1 orally every 6 hours for 5 days, as needed for pain. Dispense fifteen (15). No refill. Substitution is permissible. -- Yoli Stewart, PRosemarieARefugioC
--- NOTE | 2017-03-05 18:18 | ED MED RECONCILIATION SUMMARY ---
Patient: JAILENE ESQUEDA Medication Reconciliation Report [facility] VisitID: [id number] [place] [address] 89y, F Registration Date/Time: 03/05/2017 Weight: 81.6 kg Height/Length: 65 in. BMI: 30.0 ALLERGIES: No Known Drug Allergy The patient's Home Medications are listed below: THE FOLLOWING MEDICATIONS NEED TO BE RECONCILED: Aspirin Oral (81 mg) 1 tablet Atorvastatin Calcium Oral 20 mg, daily Docusate Sodium Oral (250 mg) 1 capsule, daily Donepezil HCl Oral (10 mg) 1 tablet, daily Multiple Vitamins Oral Ranitidine HCl Oral (15 mg/mL) 10 mL, 2x a day Sertraline HCl Oral (50 mg) 1 tablet, daily Vitamin d3 1,000 units daily The source(s) of the original Home Medication information: patient's care home record The following Medications were given to the patient in the Emergency Department: None. The following Medications were prescribed to the patient: Tylenol ER 650 mg (available over the counter): take 1 orally every 6 hours for 5 days, as needed for pain. Dispense fifteen (15). No refill. Substitution is permissible. -- Yoli Stewart, PRosemarieARefugioC
== END 2017-03-05 17:45 | disposition home or self-care (01) ==
LOC: ED SRH 14:01
DX: M13.0 Polyarthritis, unspecified (principal); M54.5 Low back pain; G89.29 Other chronic pain; I10 Essential (primary) hypertension